=== PATIENT | male | born 1980 | race Caucasian/White ===

== ENCOUNTER → 2021-03-28 | Outpatient (CLI) | payer BC ==
--- NOTE | 2021-03-28 13:05 | CONS ---
CONSULTATION DATE OF SERVICE: 03/28/2021 40-year-old gentleman has [facility] for possible obstructive sleep apnea-hypopnea syndrome. HISTORY OF PRESENT ILLNESS/SLEEP WAKE EVALUATION: SLEEP SCHEDULE: Patient's usual sleep schedule from around 11 p.m. to 6:30 a.m. on weekdays and from 9:00 pm to 6 or 6:30 a.m. on weekends. FALLING ASLEEP: Sometimes he has problems with falling asleep, although no TV in bedroom. He usually sleeps on the side position. According to his , he snores and he has multiple awakenings from sleep up to 10 times. According to his , he has episodes of stopped breathing and has gasping for air during sleep. No history of hypnagogic hallucinations, sleep paralysis or cataplexy. In the morning, the patient wakes up tired, worries about his sleep. [place] Sleepiness Scale is 9. He may take one nap 1-3 p.m. he does feel refreshed after nap. No vivid dreams during naps. PAST MEDICAL HISTORY: Positive for depression, anxiety, and episodes of headaches. PAST SURGICAL HISTORY: None. MEDICATIONS: Lexapro 10 mg once a day. SOCIAL HISTORY: Negative for smoking or using alcohol. FAMILY HISTORY: Heart problems, sleep apnea, emphysema. REVIEW OF SYSTEMS: Multiple awakenings from sleep snoring. PHYSICAL EXAMINATION: GENERAL: gentleman without distress. BP 118/76, HR 72, RR 16, height 5 feet 11 inches, weight 189, body mass index 26, temperature 98.1, oxygen saturation at room air 98%. Oropharynx: Moderately low position of soft palate, Mallampati 3. NECK 15 and one quarter inches in circumference. Neck: Supple, no JVD. Thyroid is not palpable. LUNGS: Clear to percussion and to auscultation. Good air exchange. No wheezing or rhonchi. HEART: S1, S2 regular. No murmurs, gallops, or rubs. ABDOMEN: Soft and nontender. Bowel sounds are present. No organomegaly appreciated. EXTREMITIES: No clubbing or cyanosis. HOSTESS: Awake, alert, and oriented X3. Cranial nerves 2 to 7 intact. There is no fasciculation or atrophy. noted. No focal deficits observed. IMPRESSION: 1. Snoring witnessed episodes of stopped breathing during sleep low position of soft palate, Mallampati 3 obstructive sleep apnea-hypopnea syndrome. 2. Headaches. 3. History of depression and anxiety. PLAN: 1. Polysomnography for evaluation of patient's breathing during sleep. 2. CPAP/BiPAP titration if sleep study confirms obstructive sleep apnea-hypopnea syndrome. 3. Preferable position during sleep on the side. 4. No driving if patient feels any sleepiness. 5. I will see patient for follow up visit to explain results of testing and following plan. Thank you very much for referring this patient for consultation. Sincerely, Luc Reese MD, PhD, FAASM Diplomat of [employer] Sleep Medicine Board of [place] [employer] [facility] [place] MMMARICELL / OSWALDON: [id number] /
== END | disposition home or self-care (01) ==
LOC: SLEEP 11:14
PROVIDERS: ATTEND Internal Medicine
DX: Z53.9 Procedure and treatment not carried out, unspecified reason (principal)
CPT/HCPCS: 99202